=== PATIENT | female | born 1970 | race Caucasian/White ===

== ENCOUNTER 2017-05-23 08:46 | Day surgery (SDC) | payer OTHER ==
[~2017-05-23] VITALS: Ht 160 cm; Wt 97.1 kg
[2017-05-23 09:04] VITALS: Ht 160 cm; Wt 97.1 kg
[2017-05-23 09:27] VITALS: BP 126/72; PULSE 64; RESP 20
--- NOTE | 2017-05-23 09:44 | OPPN ---
Date/Time of Note Date/Time of Note DATE: 05/23/17 TIME: 09:43 Proc Note GI Procedure Date 05/23/17 Indication: screening/surveillance Pre-procedure Diagnosis Rectal bleeding Positive stool guaiac Family history of colon cancer Post-procedure Diagnosis 1. Small hemorrhoids 2. Diverticulosis 3. Melanosis coli Procedure Performed: Colonoscopy Surgeon see signature line Side Puller none Anesthesia Type: moderate sedation Tourniquet Time none EBL none Transfusion required none Biopsy 1: None Grafts/Implants none Tubes/Drains none Complication(s) none Procedure Description Dictated IFEANYI MARES MD May 23, 2017 09:44
[2017-05-23 09:45] VITALS: BP 129/69; PULSE 70
[2017-05-23] MEDS ORDERED: FENTAnyl 50 MCG/ML VIAL ONE (09:53)
[2017-05-23] MEDS ORDERED: MIDAZOLAM 1 MG/ML 2 ML INJ ONE ×2 (09:53→09:54)
--- NOTE | 2017-05-23 23:15 | GILP ---
DATE OF PROCEDURE: PROCEDURE PERFORMED: Colonoscopy. INDICATION: A 46-year-old female undergoing this procedure for positive stool guaiac, strong family history of colon cancer. The purpose is to evaluate the colon and rule out colonic malignancy or c olon polyp, and find out the source of GI blood loss. The risks of the procedure, related and unrel ated complications, anesthetic risks, sedative risks, alternatives were thoroughly discussed and inf ormed consent was obtained. DESCRIPTION OF PROCEDURE: The patient was brought to the GI lab, sedated with Versed 3 mg, fentanyl 75 mcg. After optimum sedation, scope was passed with much ease into rectum, advanced through sigm oid, descending, transverse colon all the way into the cecum. Appendiceal orifice identified. Peep ed into terminal ileum which was normal up to 2 feet. Rest of the colon appeared normal. While coming out, mucosa thoroughly inspected, few diverticula seen. Retroflexion done, no internal hemorrhoids identified. External hemorrhoids seen. Scope was straightened out and removed with go od patient tolerance. IMPRESSION: 1. Melanosis coli seen throughout the colon. 2. Mild diverticulosis. 3. External hemorrhoids. 4. Clarity and cleanliness was good. 5. Retroflexion was normal. PLAN: Stay on a high-fiber diet. Avoid all kind of group of laxatives or senna laxatives, or any Syriac tea. Dictated By: IFEANYI SERRANO/RENEA Conf#: [id number] DID#: [id number]
== END 2017-05-23 11:55 | disposition home or self-care (01) ==
LOC: EDBD 08:46 → GIL 08:46
PROVIDERS: ATTEND Internal Medicine Gastroenterology
DX: K64.4 Residual hemorrhoidal skin tags (principal); K57.90 Diverticulosis of intestine, part unspecified, without perforation or abscess without bleeding; K63.89 Other specified diseases of intestine; Z80.0 Family history of malignant neoplasm of digestive organs
CPT/HCPCS: 45378; 84703; J2250; J3010; Z7610